=== PATIENT | female | born 1965 | race Caucasian/White ===

== ENCOUNTER 2024-11-13 18:27 | Emergency (ER) | payer MEDICARE, SELFPAY ==
[2024-11-13 18:29] VITALS: BP 170/72; PULSE 100; RESP 18; TEMP 36.5; O2SAT 98
[2024-11-13 18:31] VITALS: BMI 29.6
--- NOTE | 2024-11-13 18:55 | CT_ITS ---
PROCEDURE: SPINE LUMBAR WITHOUT CONTRAST 11/13/2024 REASON FOR EXAM: BACK PAIN TECHNIQUE: Lumbar spine CT without contrast. Coronal and Sagittal reconstruction series were provided. One or more dose reduction techniques were used (e.g., Automated exposure control, adjustment of the mA and/or kV according to patient size, use of iterative reconstruction technique COMPARISON: None. RADIATION DOSE SUMMARY: CTDlvol: 16 mGy DLP: 500 mGycm FINDINGS: Vertebrae: No acute fracture. The lumbar vertebral body heights are preserved. Alignment: The alignment is maintained. Discs: The intervertebral disc heights are preserved. There is mild central disc bulge at L5-S1. The neural foramina are patent. No significant central canal stenosis. Sacrum: Unremarkable CT/Spine Lumbar without Contrast IMPRESSION: NO ACUTE LUMBAR FRACTURE. DEGENERATIVE CHANGES. Reading Location: [facility]
[2024-11-13] MEDS: Gabapentin 300 MG Capsule PO (19:09)
[2024-11-13] MEDS: Ondansetron ODT 4 MG Tablet PO (19:09)
[2024-11-13] MEDS: diazePAM 5 MG Tablet PO (19:09)
[2024-11-13] MEDS: morphine 10 MG/ML Syringe 8 MG IM (19:09)
[2024-11-13] MEDS: HYDROmorphone 1 MG/ML Syringe IM (20:50)
[2024-11-13 20:53] VITALS: BP 123/61; PULSE 79; RESP 18; O2SAT 98
--- NOTE | 2024-11-13 21:22 | EX.ED.DYSGE1 ---
HPI History of Present Illness Chief Complaint: Back Informant: patient and spouse/S.O. Narrative Narrative: Patient is a 58-year-old female with past medical history of bipolar disorder and hypertension. She also reports a history of degenerative disc disease of her low back. She states that yesterday she was carrying some heavy totes. She states there was no sudden onset of pain but that today she noticed pain in her left low back/buttocks region after waking up. She states she has tried [id number] medications as well as topical creams without any symptom improvement. She denies any loss of bowel or bladder control or IV drug use. She states as her pain is persistent despite taking these medications she presents for evaluation. [facility] Medical History (Updated 11/14/24 @ 00:[address] Cruz Tapia DO) Seizure Bipolar 1 disorder History of IBS Hypertension Back pain Home Medications ?Medication ?Instructions ?Recorded ?Last Taken ?Type amlodipine 5 mg tablet 5 mg PO DAILY 11/13/24 Unknown History celecoxib 100 mg capsule (Celebrex) 100 mg PO BID 11/13/24 Unknown History diazepam 5 mg tablet (Valium) 5 mg PO TID PRN muscle spasm 5 11/13/24 Unknown Rx days #15 tabs famotidine 20 mg tablet (Acid 20 mg PO BID 11/13/24 Unknown History Controller) lubiprostone 8 mcg capsule 8 mcg PO BID 11/13/24 Unknown History oxcarbazepine 300 mg tablet 300 mg PO DAILY 11/13/24 Unknown History oxycodone 5 mg tablet 5 mg PO Q6H PRN pain 3 days #12 11/13/24 Unknown Rx tabs sucralfate 1 gram tablet (Carafate) 1 g PO Q6H 11/13/24 Unknown History trazodone 100 mg tablet 100 mg PO DAILY 11/13/24 Unknown History venlafaxine 75 mg capsule,extended 75 mg PO DAILY 11/13/24 Unknown History release 24 hr Allergy/AdvReac Type Severity Reaction Status Date / Time bupropion (From Wellbutrin) AdvReac Other Verified 11/13/24 18:32 lamotrigine (From Lamictal) AdvReac Other Verified 11/13/24 18:32 Social History Smoking Status: Never smoker ROS ROS ED Constitutional Constitutional ED: Denies chills or fever(s) ENT ENT ED: Denies sore throat Cardiovascular Cardiovascular: Denies chest pain Respiratory/Chest Respiratory/Chest: Denies cough or dyspnea Gastrointestinal Gastrointestinal: Denies abdominal pain, diarrhea, nausea or vomiting Genitourinary Genitourinary ED: Denies dysuria or hematuria Musculoskeletal Musculoskeletal: Reports back pain Integumentary Denies rash Neurologic Neurologic: Denies headache(s), paresthesias or weakness Hematologic/Lymphatic Hematologic/Lymphatic: Denies easy bleeding or easy bruising EXAM Physical Exam Const Vital Signs: 11/13/24 18:29 11/13/24 20:53 Temperature 97.7 F L Temperature Source Oral Pulse Rate 100 79 Respiratory Rate 18 18 Blood Pressure 170/72 H 123/61 H Blood Pressure Mean 104 81 Pulse Ox 98 98 Oxygen Delivery Method Room Air Room Air Positive well nourished and well developed General Appearance ED: well developed; Negative for pallor HEENT HEENT Narrative: Normocephalic atraumatic Eyes PERRL and EOMs intact bilaterally General Eye ED: Negative for scleral icterus Neck supple Neck Narrative: No nuchal rigidity or meningeal signs Resp normal respiratory effort and clear to auscultation bilaterally Cardio regular rate and regular rhythm GI normal to inspection, nondistended, normoactive bowel sounds, non-tender, non-distended and no masses Auscultation: normoactive bowel sounds Palpation: soft Back/Spine no CVA tenderness Back/Spine Narrative: No bony deformity or step-off of the thoracic or lumbar spine no midline tenderness to palpation Patient has tenderness over top of the left piriformis muscle belly that worsens with hip flexion. No saddle anesthesia. Negative straight leg raise. No clonus or Babinski. Patellar reflexes are plus 1 out of 4 bilaterally No overlying soft tissue changes to suggest trauma or infection Extremity normal to inspection Neuro oriented x3, CN's II-XII intact bilaterally and no sensory deficits noted Sensorium / Orientation: alert Psych mental status grossly normal Skin no rashes or lesions noted and no wounds General Skin Exam: Negative for jaundice or pallor MDM MDM MDM Narrative Medical decision making narrative: Patient arrived to the ER hypertensive otherwise with stable vitals. She reported carrying heavy totes yesterday and then developing back pain multiple hours later. She denied any recent surgeries or procedures to suggest discitis. She has no loss of bowel or bladder control or IV drug use to suggest cauda equina syndrome or epidural abscess. With potential for a underlying compression fracture secondary to her lifting I did elect to perform a CT scan of the low back. It showed degenerative changes without acute fracture. After receiving medication in the ER she had improvement of her pain and her vital stable. As there is no overlying soft tissue changes I have low concern for cellulitis or abscess or shingles. And without dysuria or CVA pain I have low concern for UTI has pyelonephritis. Therefore this time as symptoms and workup are most consistent with lumbosacral strain and degenerative disc disease and patient's had improvement of symptoms there is no need for further workup and she is otherwise safe for discharge History & Record Review Discussion w/independent historian: Patient and Significant other Radiography Diagnostic Testing: Clinical Impression(s) from Imaging Studies Lumbar Spine CT 11/13/24 18:55 IMPRESSION: NO ACUTE LUMBAR FRACTURE. DEGENERATIVE CHANGES. [facility] Triage Chief Complaint: Back ED Provider: Cruz Tapia Dx/Rx/DC Orders Clinical Impression: Acute myofascial strain of lumbosacral region, Muscle spasm, Degenerative disc disease, Hypertension, Bipolar disorder Instructions: ED Back Sprain/Strain, ED Degenerative Disk Disease Prescriptions: New diazepam [Valium] 5 mg tablet 5 mg PO TID PRN (Reason: muscle spasm) 5 Days Qty: 15 0RF oxycodone 5 mg tablet 5 mg PO Q6H PRN (Reason: pain) 3 Days Qty: 12 0RF No Action amlodipine 5 mg tablet 5 mg PO DAILY venlafaxine 75 mg capsule,extended release 24hr 75 mg PO DAILY trazodone 100 mg tablet 100 mg PO DAILY celecoxib [Celebrex] 100 mg capsule 100 mg PO BID sucralfate [Carafate] 1 gram tablet 1 g PO Q6H lubiprostone 8 mcg capsule 8 mcg PO BID oxcarbazepine 300 mg tablet 300 mg PO DAILY famotidine [Acid Controller] 20 mg tablet 20 mg PO BID Primary Care Provider: Alon Arenas Referrals: lAon Arenas MD [Primary Care Provider] - Activity Restrictions/Additional Instructions: Please continue to stretch and heat your back to reduce pain and speed healing. Use the prescribed medications as directed to control any further pain. Return to the ER should you have any further concerns Print Language: Romansh Disposition Disposition: Home, Self Care Discharge Date/Time: 11/13/24 21:30
[2024-11-13] MEDS: oxyCODONE 5 MG Tablet 10 MG PO (21:27)
== END 2024-11-13 21:30 | disposition home or self-care (01) ==
PROVIDERS: Emergency Provider Emergency Medicine; PCP Family Medicine; Visit Provider Emergency Medicine
DX: S39.012A Strain of muscle, fascia and tendon of lower back, initial encounter (principal); F31.9 Bipolar disorder, unspecified; G40.909 Epilepsy, unspecified, not intractable, without status epilepticus; I10 Essential (primary) hypertension; M62.838 Other muscle spasm; M51.369 Other intervertebral disc degeneration, lumbar region without mention of lumbar back pain or lower extremity pain; X50.0XXA Overexertion from strenuous movement or load, initial encounter; Y93.89 Activity, other specified; Z79.899 Other long term (current) drug therapy
CPT/HCPCS: 72131; 96372; 99282